=== PATIENT | male | born 1940 | race Caucasian/White ===

== ENCOUNTER 2021-03-15 10:00 | Inpatient (IN) | payer MEDICARE ==
[~2021-03-15] VITALS: Ht 170.2 cm; Wt 71.3 kg
[~2021-03-15 10:00] MED LIST: ASPIRIN81 MG PO; B COMPLEX1 EACH PO; CILOSTAZOL100 MG PO; COREG12.5 MG PO; FOLIC ACID0.4 MG PO; MOBIC7.5 MG PO; NORVASC5 MG PO; PRAVACHOL40 MG PO; PROTONIX 40MG T40 MG PO; TRAZODONE 50MG50 MG PO; VANCOMYCIN HCL1 GM PO; ZANTAC150 MG PO; ZOFRAN4 MG PO
[2021-03-15] MEDS ORDERED: THIAMINE HCL250 MG PO (11:10)
[2021-03-15] MEDS ORDERED: CHLORTHALIDONE25 MG PO (11:10)
[2021-03-15] MEDS ORDERED: PEPCID AC20 MG PO (11:11)
[2021-03-15] MEDS ORDERED: MOBIC7.5 MG PO (11:11)
[2021-03-15] MEDS ORDERED: K-DUR20 MEQ PO (11:11)
[2021-03-15] MEDS ORDERED: MAG-OXIDE 400M400 MG PO (11:12)
[2021-03-15] MEDS ORDERED: AMARYL2 MG PO (11:12)
[2021-03-15] MEDS ORDERED: GLUCOTROL10 MG PO (13:41)
--- NOTE | 2021-03-15 14:03 | NUR ---
PT MEDICATION LIST WAS UPDATED BY WAN STEPHENSON FROM LIST THAT WAS FAXED BY [facility]. HAD PT PHARMACY [facility]UL[facility] FAX OVER A MED LIST. MEDICATION LIST WAS UPDATED AGAIN. DR BURNS WAS NOTIFIED ABOUT MEDICATION CHANGES
--- NOTE | 2021-03-15 14:16 | NUR ---
PT HEART RATE WENT INTO THE 150'S DR BURNS WAS CALLED 5MG IV LOPRESSOR WAS GIVEN 4 81MG BABY ASPRINS, AND A DOSE OF LOVENOXPT HEART RATE DECREASED DOWN TO [id number] AFTER MEDICATION WAS GIVEN HEART RATE IS MAINTAINING AROUND VADIM 70'S TO LOW 80'S
[2021-03-16 05:59] LABS: BASOPHIL 0.6 % (0-2); EOSINOPHIL 7.5 % (0-7); HCT 38.1 % (42.0-52.0); HGB 13.2 g/dl (13.2-18.0); MCHC 34.6 g/dL (32.0-36.0); MCV 98.2 fL (78.0-100.0); MONOCYTE 10.7 % (0-12); MPV 11.4 fL (6.0-9.5); NEUTROPHIL 64.3 % (41-80); NRBC 0; PLT 147 K/uL (150-400); RBC 3.88 M/uL (4.70-6.00); RDW 13.6 % (11.5-14.0); WBC 13.3 K/uL (4.0-10.5)
[2021-03-16 06:30] LABS: ALBUMIN 1.8 g/dL (3.4-5.0); BILIRUBIN - TOTAL 3.8 mg/dL (0.2-1.0); BUN/CREAT RATIO (CALC) 15.7 RATIO; CREATININE 1.08 mg/dL (0.67-1.17); POTASSIUM 2.9 mmol/L (3.5-5.1); TOTAL PROTEIN 5.8 g/dL (6.4-8.2)
--- NOTE | 2021-03-16 11:38 | NUR ---
MET WITH PT. HE IS ANTICIPATING D/C HOME THIS DATE. HE STATED THAT HIS IS IN THE [facility] WITH MAJOR SURGERY. HE STATED THAT HE WILL BE GOING HOME. ADVISED HIM THAT THE DOCTOR WOULD LIKE FOR HIM TO HAVE A CANE AND HH. PT. DECLINED BOTH. HE STATED THAT HE HAD ALWAYS BEEN INDEPENDENT AND IT IS POSSIBLE HE WILL FACE HOSPICE DOWN THE ROAD, BUT AT THIS TIME DOES NOT WANT ANY SERVICES. I SUGGESTED I CONTACT HIS DAUGHTER IN LAW, WILLIAM, BUT HE REFUSED TO ALLOW ME TO CONTACT HER. PT. DOES HAVE A BIPAP. ADVISED DR. BURNS.
[2021-03-16] MEDS ORDERED: GLUCOTROL5 MG PO (12:33)
[2021-03-16] MEDS ORDERED: RESTORIL7.5 MG PO (12:33)
[2021-03-16] MEDS ORDERED: NORCO 5-325 TA1 EACH PO (12:38)
[2021-03-16] MEDS ORDERED: MEGACE ORA6 TSP/1 OZ PO (12:38)
== END 2021-03-16 16:43 | disposition home or self-care (01) | DRG 436 ==
LOC: FMS 10:00
PROVIDERS: ADMIT Allergy & Immunology Allergy
PROC: 0FB13ZX Excision of Right Lobe Liver, Percutaneous Approach, Diagnostic (ICD-10-PCS; principal; 2021-03-15)
DX: C78.7 Secondary malignant neoplasm of liver and intrahepatic bile duct (principal); C25.9 Malignant neoplasm of pancreas, unspecified; I95.9 Hypotension, unspecified; I25.10 Atherosclerotic heart disease of native coronary artery without angina pectoris; E11.22 Type 2 diabetes mellitus with diabetic chronic kidney disease; D63.1 Anemia in chronic kidney disease; E11.51 Type 2 diabetes mellitus with diabetic peripheral angiopathy without gangrene; Z20.822 Contact with and (suspected) exposure to COVID-19; K76.1 Chronic passive congestion of liver; I12.9 Hypertensive chronic kidney disease with stage 1 through stage 4 chronic kidney disease, or unspecified chronic kidney disease; N18.30 Chronic kidney disease, stage 3 unspecified; E86.0 Dehydration; E86.9 Volume depletion, unspecified; R62.7 Adult failure to thrive; K21.9 Gastro-esophageal reflux disease without esophagitis; Z90.89 Acquired absence of other organs; Z98.890 Other specified postprocedural states; Z86.79 Personal history of other diseases of the circulatory system; I25.2 Old myocardial infarction; Z88.1 Allergy status to other antibiotic agents; Z79.899 Other long term (current) drug therapy; Z68.24 Body mass index [BMI] 24.0-24.9, adult
CPT/HCPCS: 36415; 71260; 76942; 80053; 80074; 82607; 82668; 82728; 82746; 82962; 83010; 83540; 83550; 83615; 83735; 84439; 84443; 85025; 85384; 85610; 85730; 86140; 86880; 88341; 88342; 93005; 97162; 97530-GP; J1650; J3480; J7120; Q9967; U0002

== ENCOUNTER 2021-03-20 15:28 | Day surgery (SDCO) | payer MEDICARE ==
[~2021-03-20] VITALS: Ht 170 cm; Wt 71.0 kg
[~2021-03-20 15:28] MED LIST changes: +AMARYL2 MG PO; +CHLORTHALIDONE25 MG PO; +GLUCOTROL10 MG PO; +GLUCOTROL5 MG PO; +K-DUR20 MEQ PO; +MAG-OXIDE 400M400 MG PO; +MEGACE ORA6 TSP/1 OZ PO; +NORCO 5-325 TA1 EACH PO; +PEPCID AC20 MG PO; +RESTORIL7.5 MG PO; +THIAMINE HCL250 MG PO
[2021-03-21 06:25] LABS: BUN/CREAT RATIO (CALC) 20.7 RATIO; CREATININE 0.92 mg/dL (0.67-1.17); POTASSIUM 4.5 mmol/L (3.5-5.1)
[2021-03-21 06:38] LABS: HCT 39.2 % (42.0-52.0); HGB 13.7 g/dl (13.2-18.0); MCHC 34.9 g/dL (32.0-36.0); MCV 97.3 fL (78.0-100.0); MPV 12.5 fL (6.0-9.5); RBC 4.03 M/uL (4.70-6.00); RDW 15.7 % (11.5-14.0); WBC 17.6 K/uL (4.0-10.5)
[2021-03-21 11:29] LABS: BILIRUBIN 3+ mg/dL (NEGATIVE); BLOOD NEGATIVE Ery/uL (NEGATIVE); CLARITY CLEAR (CLEAR); GLUCOSE (U) TRACE mg/dL (NORMAL); LEUKOCYTES NEGATIVE Leu/uL (NEGATIVE); NITRITE NEGATIVE (NEGATIVE); PROTEIN TRACE (LOW) mg/dL (NEGATIVE); pH 5.5 (5.0-9.0)
[2021-03-21 11:30] LABS: COLOR AMBER (YELLOW)
[2021-03-21 11:33] LABS: BACTERIA TRACE; SQUAMOUS EPITHELIAL CELLS RARE
--- NOTE | 2021-03-21 14:47 | NUR ---
MET WITH PT. TO DISCUSS HH AND EQUIPMENT. PT. HAS RECENTLY BEEN DIAGNOSISED WITH LIVER CANCER. HE SEES DR. CHAN. PT. STATED THAT HIS HAS RECENTLY COME HOME FROM HOSPITAL AND SHE IS RECEIVING HH, BUT HE IS UNSURE OF WHICH AGENCY. PT. STATED THAT HE HAS A RW AND WHEELCHAIR. HE DID GIVE ME PERMISSION TO SPEAK WITH DAUGHTER IN LAW, WILLIAM AND SON, RUBINA, TO CONFIRM HH AGENCY. TC TO RUBINA, HAD TO LEAVE MESSAGE FOR A CALL BACK. TC TO WILLIAM, SHE ADVISED THAT HH IS [facility]. MADE A REFERRAL THRU [facility] TO [facility]. SENT AN EMAIL TO [facility] TO ADVISE A REFERRAL WAS COMING TO HER FOR THE [place] [facility] THE PT. RESIDES IN [facility]. RECEIVED A CALL BACK FROM RUBINA. HE CONFIRMED HH AND DME. HE STATED THAT HE AND HIS ARE ASSISTING HIS PARENTS WITH THEIR CARE. PT. IS GETTING A PORT BY DR. MASTERS ON FRIDAY, 03/22 AND WILL POSSIBLY D/C AFTER THE PROCEDURE. PT. WILL CONTINUE TO SEE DR. CHAN FOR TREATMENT.
[2021-03-22 06:04] LABS: HCT 38.9 % (42.0-52.0); HGB 13.9 g/dl (13.2-18.0); MCH 34.2 pg (25.0-31.0); MCHC 35.7 g/dL (32.0-36.0); MCV 95.8 fL (78.0-100.0); MPV 11.8 fL (6.0-9.5); RBC 4.06 M/uL (4.70-6.00); RDW 16.3 % (11.5-14.0); WBC 12.4 K/uL (4.0-10.5)
[2021-03-22 06:21] LABS: CREATININE 0.9 mg/dL (0.67-1.17); POTASSIUM 3.9 mmol/L (3.5-5.1)
[2021-03-22] MEDS ORDERED: CARAFATE1 GM PO (12:50)
[2021-03-22] MEDS ORDERED: PANTOPRAZOLE SO40 MG PO (12:50)
[2021-03-22] MEDS ORDERED: COLACE100 MG PO (12:50)
--- NOTE | 2021-03-22 16:14 | NUR ---
03/22/21 [facility] was notified of discharge. IV fluids were arranged through [facility].
== END 2021-03-22 16:05 | disposition home health service (06) ==
LOC: FMS 15:28
PROVIDERS: Hospitalist; ADMIT Internal Medicine
DX: C78.7 Secondary malignant neoplasm of liver and intrahepatic bile duct (principal); C80.1 Malignant (primary) neoplasm, unspecified; I12.9 Hypertensive chronic kidney disease with stage 1 through stage 4 chronic kidney disease, or unspecified chronic kidney disease; I25.2 Old myocardial infarction; E11.22 Type 2 diabetes mellitus with diabetic chronic kidney disease; E11.51 Type 2 diabetes mellitus with diabetic peripheral angiopathy without gangrene; E86.0 Dehydration; N18.30 Chronic kidney disease, stage 3 unspecified; K21.9 Gastro-esophageal reflux disease without esophagitis; Z20.822 Contact with and (suspected) exposure to COVID-19; Z98.890 Other specified postprocedural states; Z88.1 Allergy status to other antibiotic agents; Z87.891 Personal history of nicotine dependence; Z79.84 Long term (current) use of oral hypoglycemic drugs
CPT/HCPCS: 36415; 71045; 76000; 77001; 80048; 81001; 97162; 97166; 97530-GP; 97535; C1788; G0378; G0463; J1644; J1650; J1885; J1956; J2250; J2270; J2405; J2704; J3010; J7030; J7120; U0002